=== PATIENT | male | born 1955 | race Caucasian/White ===

== ENCOUNTER → 2019-12-07 | Outpatient (CLI) | payer OTHER | LOC: CAT 09:06 | DX: Z13.6 Encounter for screening for cardiovascular disorders (principal); E78.00 Pure hypercholesterolemia, unspecified; I25.10 Atherosclerotic heart disease of native coronary artery without angina pectoris ==

== ENCOUNTER → 2020-02-08 | Outpatient (CLI) | payer OTHER | LOC: SJCVCIMAG 08:56 | DX: R06.09 Other forms of dyspnea (principal); R07.9 Chest pain, unspecified ==